=== PATIENT | male | born 1990 | race African-American/Black ===

== ENCOUNTER 2021-12-07 09:35 | Inpatient (IN) | payer SELFPAY ==
[2021-12-07 10:07] LABS: #Lymphocytes 1.2 thou/uL (1.20-3.40); #Monocytes 0.6 thou/uL (0.11-0.59); #Neutrophils 4.6 thou/uL (1.40-6.50); %Basophils 0.5 % (0.0-1.0); %Eosinophils 0.6 % (0.0-10.0); %Lymphocytes 18.1 % (21.0-51.0); %Monocytes 9.4 % (0.0-10.0); %Neutrophils 71.3 % (42.0-75.0); Hemoglobin 11.3 g/dL (14.0-18.0); Mean Corpuscular HGB CONC 33.6 g/dL (32.0-36.0); Mean Corpuscular Hemoglobin 36.8 pg (27.0-31.0); Mean Platelet Volume 7.2 fL (7.4-10.4); Platelet Count 198 thou/uL (130-400); RBC Distribution Width 13.7 % (11.5-14.5); Red Blood Cell (RBC) Count 3.07 mill/uL (4.70-6.10); White Blood Cell (WBC) Count 6.5 thou/uL (4.8-10.8)
[2021-12-07 10:25] LABS: ALT (SGPT) 75 U/L (8-55); AST (SGOT) 104 U/L (5-34); Albumin 3.6 g/dL (3.5-5.0); Alkaline Phosphatase 351 U/L (40-110); Anion Gap 17 mmol/L (10-20); BUN (Urea Nitrogen) 12 mg/dL (8.9-20.6); Bilirubin, Total 2.3 mg/dL (0.2-1.2); Calc. Creatinine Clearance 0 mL/min (70-130); Calcium 9.1 mg/dL (7.8-10.44); Carbon Dioxide 22 mmol/L (22-29); Chloride 100 mmol/L (98-107); Estimated GFR 119; Globulin 3.9 g/dL (2.4-3.5); Glucose 103 mg/dL (70-105); Lipase 956 U/L (8-78); Potassium 3.9 mmol/L (3.5-5.1); Protein, Total 7.5 g/dL (6.0-8.3); Sodium 135 mmol/L (136-145)
[2021-12-07 10:26] LABS: MDiff Complete? YES; Macrocytosis MODERATE=16-30 cells (100X) (0-5/hpf); Platelet Morphology Comment Appears Adequate; Polychromasia SLIGHT = 2-3 cells (100X) (0-2/hpf); Stomatocytes SLIGHT = 2-5 cells (100X) (0-1/hpf); Target Cells SLIGHT = 2-5 cells (100X) (0-1/hpf)
[2021-12-07 10:52] LABS: Bilirubin Negative (Negative); Blood, Urine Negative (Negative); Clarity Clear (Clear); Glucose, Urine (Dipstick) Normal (Negative); Ketone, Urine Negative (Negative); Leukocyte Negative Leu/uL (Negative); Nitrite Negative (Negative); Protein, Urine (Dipstick) Negative (Neg-Trace); Specific Gravity, Urine 1.005 (1.002-1.036); Urobilinogen Normal mg/dL (Less than 2)
[2021-12-07] MEDS ORDERED: Morphine 4 MG/ML VIAL ONE (11:22)
[2021-12-07] MEDS ORDERED: Ondansetron PF 4 MG/2 ML Vial ONE ×2 (11:22→17:10)
[2021-12-07 11:24] LABS: Acetaminophen Less than 10.0 mcg/mL (10.0-30.0); Alcohol 28 mg/dL (Less than 10); CK (CPK) 142 U/L (30-200); Salicylate Less than 8.0 mg/dL (15.0-30.0)
[2021-12-07 12:10] LABS: Amphetamine Not Detected (NotDetected); Barbiturates Screen Not Detected (NotDetected); Benzodiazepine Screen Not Detected (NotDetected); Cocaine Metabolite Screen Not Detected (NotDetected); Methadone Not Detected (NotDetected); Methamphetamine Not Detected (NotDetected); Opiate Screen Not Detected (NotDetected); Oxycodone Screen Not Detected (NotDetected); Phencyclidine (PCP) Not Detected (NotDetected); THC/Cannabinoid Screen Not Detected (NotDetected); Tricyclic Screen Not Detected (NotDetected)
[2021-12-07] MEDS ORDERED: Multivitamins, Adult 10 ML, Thiamine HCl 100 MG, Folic Acid 1 MG in Dextrose 5 %-0.45 %... IV SCH (13:15)
[2021-12-07] MEDS ORDERED: Lorazepam 2 MG/ML VIAL IM PRN (14:44)
[2021-12-07] MEDS ORDERED: Electrolyte Replacement Protocol 1 EACH FS SCH (14:45)
[2021-12-07] MEDS ORDERED: Ondansetron PF 4 MG/2 ML Vial IVP PRN (14:48)
[2021-12-07] MEDS ORDERED: Dextrose 5% in Water 1,000 ML IV PRN (15:10)
[2021-12-07] MEDS ORDERED: Dextrose 50% Abboject 50 ML SYRINGE SLOW IVP PRN (15:10)
[2021-12-07] MEDS ORDERED: Electrolyte Replacement Protocol FS PRN (15:15)
[2021-12-07 15:21] LABS: Magnesium 1.6 mg/dL (1.6-2.6); Phosphorus 3.6 mg/dL (2.3-4.7)
[2021-12-07] MEDS ORDERED: Iopamidol-370 76% 500 ML 1 ML ONE (15:27)
[2021-12-07] MEDS ORDERED: Morphine 2 MG/ML VIAL ONE (17:10)
[2021-12-07] MEDS: Morphine 2 MG/ML VIAL SLOW IVP PRN ×2 (17:23→21:22)
[2021-12-07 18:31] VITALS: BMI 24.9
[2021-12-07] MEDS: Ketorolac Tromethamine 30 MG/ML VIAL IVP SCH ×2 (18:41→23:43)
[2021-12-07 19:55] LABS: SARS-CoV-2 NAA Rapid Test Not Detected (NotDetected)
[2021-12-07] MEDS: Pantoprazole 40 MG VIAL IVP SCH (21:21)
[2021-12-07] MEDS: Sodium Chloride 0.9% 1,000 ML IV SCH ×2 (21:40→21:41)
[2021-12-08] MEDS ORDERED: Magnesium 2 GM/50 ML(in water) 2 GM in Premix Bag 1 BAG IVPB SCH (01:30)
[2021-12-08] MEDS: Morphine 2 MG/ML VIAL SLOW IVP PRN ×4 (01:46→21:01)
[2021-12-08] MEDS: Sodium Chloride 0.9% 1,000 ML IV SCH ×5 (05:38→23:59)
[2021-12-08] MEDS: Ketorolac Tromethamine 30 MG/ML VIAL IVP SCH ×4 (05:42→23:58)
[2021-12-08 06:19] LABS: Hemoglobin 9.6 g/dL (14.0-18.0); Mean Corpuscular HGB CONC 34.3 g/dL (32.0-36.0); Mean Corpuscular Hemoglobin 38.4 pg (27.0-31.0); Mean Platelet Volume 7.3 fL (7.4-10.4); Platelet Count 139 thou/uL (130-400); RBC Distribution Width 13.5 % (11.5-14.5); White Blood Cell (WBC) Count 5.2 thou/uL (4.8-10.8)
[2021-12-08 06:22] LABS: Band 3 % (5-11); Eosinophils 1 % (0-10); Lymphocytes 8 % (21-51); MDiff Complete? YES; Macrocytosis MODERATE=16-30 cells (100X) (0-5/hpf); Monocytes 9 % (0-10); Neutrophil 79 % (42-75); Target Cells SLIGHT = 2-5 cells (100X) (0-1/hpf)
[2021-12-08 06:23] LABS: ALT (SGPT) 54 U/L (8-55); AST (SGOT) 70 U/L (5-34); Alkaline Phosphatase 259 U/L (40-110); Anion Gap 9 mmol/L (10-20); BUN (Urea Nitrogen) 8 mg/dL (8.9-20.6); Bilirubin, Total 2.8 mg/dL (0.2-1.2); Calc. Creatinine Clearance 134 mL/min (70-130); Calcium 8.1 mg/dL (7.8-10.44); Carbon Dioxide 24 mmol/L (22-29); Cardiac Risk 6.6 (Less than 4.5); Chloride 106 mmol/L (98-107); Cholesterol 236 mg/dl (< 200 Desired); Estimated GFR 120; Globulin 3.2 g/dL (2.4-3.5); Glucose 112 mg/dL (70-105); HDL Cholesterol 36 mg/dL (>60 Neg Risk); LDL Cholesterol, Calculated 170 mg/dL; Potassium 3.4 mmol/L (3.5-5.1); Protein, Total 6.2 g/dL (6.0-8.3); Sodium 136 mmol/L (136-145); Triglycerides 152 mg/dL (Less than 150)
[2021-12-08] MEDS: Folic Acid 1 MG TAB PO SCH (08:46)
[2021-12-08] MEDS: Multivit, Therapeutic 1 TAB PO SCH (08:46)
[2021-12-08] MEDS: Pantoprazole 40 MG VIAL IVP SCH ×2 (08:47→21:01)
[2021-12-08] MEDS: Potassium Chloride 20 MEQ in Premix Bag 1 BAG IVPB SCH ×2 (08:53→10:45)
[2021-12-08] MEDS ORDERED: Thiamine 100 MG TAB PO SCH (09:00)
[2021-12-08] MEDS ORDERED: Prevnar 13-Val Conj/PF 0.5 ML SYRINGE IM ONE (09:00)
[2021-12-08] MEDS: Thiamine HCl 200 MG/2 ML VIAL SLOW IVP SCH (10:29)
[2021-12-09] MEDS: Morphine 2 MG/ML VIAL SLOW IVP PRN ×3 (02:42→16:50)
[2021-12-09] MEDS: Sodium Chloride 0.9% 1,000 ML IV SCH ×3 (05:36→20:22)
[2021-12-09] MEDS: Ketorolac Tromethamine 30 MG/ML VIAL IVP SCH ×3 (05:37→18:34)
[2021-12-09 07:27] LABS: #Eosinphils 0.2 thou/uL (0.0-0.7); #Lymphocytes 0.7 thou/uL (1.20-3.40); #Monocytes 0.5 thou/uL (0.11-0.59); #Neutrophils 2.7 thou/uL (1.40-6.50); %Eosinophils 4.2 % (0.0-10.0); %Lymphocytes 17.4 % (21.0-51.0); %Monocytes 11.2 % (0.0-10.0); %Neutrophils 66.2 % (42.0-75.0); Hemoglobin 9.1 g/dL (14.0-18.0); Mean Corpuscular HGB CONC 33.4 g/dL (32.0-36.0); Mean Corpuscular Hemoglobin 37.5 pg (27.0-31.0); Mean Platelet Volume 7.1 fL (7.4-10.4); Platelet Count 124 thou/uL (130-400); RBC Distribution Width 13.9 % (11.5-14.5); Red Blood Cell (RBC) Count 2.43 mill/uL (4.70-6.10)
[2021-12-09 07:39] LABS: ALT (SGPT) 51 U/L (8-55); AST (SGOT) 80 U/L (5-34); Albumin 3.1 g/dL (3.5-5.0); Alkaline Phosphatase 255 U/L (40-110); Anion Gap 10 mmol/L (10-20); BUN (Urea Nitrogen) 5 mg/dL (8.9-20.6); Bilirubin, Total 2.3 mg/dL (0.2-1.2); Calc. Creatinine Clearance 150 mL/min (70-130); Calcium 8.3 mg/dL (7.8-10.44); Carbon Dioxide 22 mmol/L (22-29); Chloride 107 mmol/L (98-107); Estimated GFR 124; Globulin 3.2 g/dL (2.4-3.5); Glucose 109 mg/dL (70-105); Potassium 3.4 mmol/L (3.5-5.1); Protein, Total 6.3 g/dL (6.0-8.3); Sodium 136 mmol/L (136-145)
[2021-12-09] MEDS: Multivit, Therapeutic 1 TAB PO SCH (08:38)
[2021-12-09] MEDS: Thiamine HCl 200 MG/2 ML VIAL SLOW IVP SCH (08:38)
[2021-12-09] MEDS: Folic Acid 1 MG TAB PO SCH (08:38)
[2021-12-09] MEDS: Pantoprazole 40 MG VIAL IVP SCH ×2 (08:40→20:23)
[2021-12-09] MEDS ORDERED: Potassium Chloride 20 MEQ TAB PO SCH ×2 (09:00)
[2021-12-09] MEDS ORDERED: Magnesium Sulfate 3 GM in Sodium Chloride 0.9% 100 ML IVPB SCH (09:00)
[2021-12-09] MEDS ORDERED: Lorazepam 1 MG TAB PO PRN (14:44)
[2021-12-10] MEDS: Ketorolac Tromethamine 30 MG/ML VIAL IVP SCH ×2 (00:11→05:50)
[2021-12-10] MEDS: Sodium Chloride 0.9% 1,000 ML IV SCH (03:17)
[2021-12-10] MEDS ORDERED: Lorazepam 0.5 MG TAB PO SCH (03:30)
[2021-12-10 06:46] LABS: #Eosinphils 0.2 thou/uL (0.0-0.7); #Lymphocytes 1.1 thou/uL (1.20-3.40); #Monocytes 0.5 thou/uL (0.11-0.59); #Neutrophils 1.9 thou/uL (1.40-6.50); %Basophils 0.7 % (0.0-1.0); %Eosinophils 4.3 % (0.0-10.0); %Lymphocytes 29.6 % (21.0-51.0); %Monocytes 13.3 % (0.0-10.0); %Neutrophils 52.1 % (42.0-75.0); Hemoglobin 8.4 g/dL (14.0-18.0); Mean Corpuscular HGB CONC 32.6 g/dL (32.0-36.0); Mean Corpuscular Hemoglobin 36.8 pg (27.0-31.0); Mean Platelet Volume 7.6 fL (7.4-10.4); Platelet Count 135 thou/uL (130-400); RBC Distribution Width 13.7 % (11.5-14.5); Red Blood Cell (RBC) Count 2.27 mill/uL (4.70-6.10); White Blood Cell (WBC) Count 3.6 thou/uL (4.8-10.8)
[2021-12-10 07:02] LABS: ALT (SGPT) 41 U/L (8-55); AST (SGOT) 56 U/L (5-34); Albumin 2.9 g/dL (3.5-5.0); Alkaline Phosphatase 239 U/L (40-110); Anion Gap 11 mmol/L (10-20); BUN (Urea Nitrogen) 5 mg/dL (8.9-20.6); Bilirubin, Total 1.4 mg/dL (0.2-1.2); Calc. Creatinine Clearance 156 mL/min (70-130); Calcium 8.5 mg/dL (7.8-10.44); Carbon Dioxide 22 mmol/L (22-29); Chloride 110 mmol/L (98-107); Estimated GFR 126; Globulin 3.3 g/dL (2.4-3.5); Glucose 99 mg/dL (70-105); Protein, Total 6.2 g/dL (6.0-8.3); Sodium 139 mmol/L (136-145)
[2021-12-10] MEDS: Thiamine HCl 200 MG/2 ML VIAL SLOW IVP SCH (11:26)
[2021-12-10] MEDS: Multivit, Therapeutic 1 TAB PO SCH (11:26)
[2021-12-10] MEDS: Folic Acid 1 MG TAB PO SCH (11:26)
[2021-12-10] MEDS: Pantoprazole 40 MG VIAL IVP SCH (11:27)
[2021-12-10 14:28] VITALS: BP 140/99; TEMP 98.7
[2021-12-10] MEDS ORDERED: Lorazepam 0.5 MG TAB PO PRN (14:44)
== END 2021-12-10 14:15 | disposition home or self-care (01) | DRG 439 ==
LOC: ERS 09:35 → ERHOLD 12:58 → T4-B 18:08
PROVIDERS: ADMIT Family Medicine; ATTEND Internal Medicine
DX: K85.20 Alcohol induced acute pancreatitis without necrosis or infection (principal); E87.1 Hypo-osmolality and hyponatremia; F17.210 Nicotine dependence, cigarettes, uncomplicated; I10 Essential (primary) hypertension; D63.8 Anemia in other chronic diseases classified elsewhere; F10.10 Alcohol abuse, uncomplicated; Z20.822 Contact with and (suspected) exposure to COVID-19
CPT/HCPCS: 36415; 36416; 74177; 76705; 80053; 80061; 80306; 80307; 81003; 82550; 82787; 83690; 83735; 84100; 84484; 85025; 93005; 96374; 96375; C9113; J1885; J2270; J2405; J3411; J3475; J3480; J3490; J7042; J7050; Q9967; U0002